=== PATIENT | female | born 1980 | race Caucasian/White ===

== ENCOUNTER 2017-01-03 21:51 | Emergency (ER) | payer OTHER ==
[~2017-01-03 21:51] MED LIST: COL100 PO; DOXYCYCLINE100 M4 PO; ESG PO; PYRIDIUM200 MG PO
[2017-01-03 23:55] VITALS: BP 120/92
== END 2017-01-03 23:55 | disposition home or self-care (01) ==
LOC: ED 21:51
DX: R07.89 Other chest pain (principal); G89.29 Other chronic pain; R11.10 Vomiting, unspecified; R20.2 Paresthesia of skin; F11.20 Opioid dependence, uncomplicated; M79.7 Fibromyalgia; N30.10 Interstitial cystitis (chronic) without hematuria; R53.82 Chronic fatigue, unspecified; Z79.899 Other long term (current) drug therapy; Z88.1 Allergy status to other antibiotic agents; Z88.2 Allergy status to sulfonamides
CPT/HCPCS: J1885; J2270; Q0092; Q0162

== ENCOUNTER 2017-01-23 15:42 | Emergency (ER) | payer OTHER ==
[2017-01-23 18:08] VITALS: BP 120/79
== END 2017-01-23 18:08 | disposition home or self-care (01) ==
LOC: ED 15:42
DX: G89.29 Other chronic pain (principal); M54.5 Low back pain; R07.89 Other chest pain; M79.7 Fibromyalgia; R53.82 Chronic fatigue, unspecified
CPT/HCPCS: J1885; J2270; Q0162

== ENCOUNTER 2017-02-12 16:10 | Emergency (ER) | payer OTHER ==
[~2017-02-12] VITALS: Ht 154.9 cm; Wt 46.3 kg
[2017-02-12 17:42] LABS: UA SPECIFIC GRAVITY <=1.005 (1.005-1.035); microscopic required? YES; urine erythrocyte 3+ (NEGATIVE)
[2017-02-12 18:12] VITALS: BP 124/76
== END 2017-02-12 18:12 | disposition home or self-care (01) ==
LOC: ED 16:10
PROVIDERS: Emergency Medicine
DX: N39.0 Urinary tract infection, site not specified (principal); Z88.0 Allergy status to penicillin; Z79.899 Other long term (current) drug therapy; Z88.1 Allergy status to other antibiotic agents; Z79.1 Long term (current) use of non-steroidal anti-inflammatories (NSAID); Z79.891 Long term (current) use of opiate analgesic; Z88.8 Allergy status to other drugs, medicaments and biological substances
CPT/HCPCS: J0696

== ENCOUNTER 2018-06-13 13:14 | Emergency (ER) | payer OTHER ==
[~2018-06-13] VITALS: Ht 162.6 cm; Wt 52.2 kg
[2018-06-13 13:23] VITALS: Ht 162.6 cm; Wt 52.2 kg
[2018-06-13 17:19] LABS: FREE T4 0.81 ng/dL (0.76-1.46); FREE THYROXINE INDEX 2.1 ug/dL (1.4-4.5); T4(THYROXINE) 6.1 ug/dL (4.7-13.3)
[2018-06-13 17:25] LABS: T3 TOTAL 1.16 ng/mL
[2018-06-13 17:31] LABS: CALCIUM 7.5 mg/dL (8.5-10.1); CARBON DIOXIDE 26.6 mmol/L (21-32); CHLORIDE SERUM 104 mmol/L (98-107); CREATININE SERUM 0.7 mg/dL (0.6-1.0); GFR1 > 60 mL/min; GLUCOSE SERUM 91 mg/dL (74-106); POTASSIUM SERUM 3.9 mmol/L (3.5-5.1); SODIUM SERUM 136 mmol/L (136-145)
[2018-06-13 17:44] LABS: ALKALINE PHOSPHATASE 33 U/L (46-116); ALT/SGPT 15 U/L (14-59); AST/SGOT 19 U/L (15-37); BILIRUBIN TOTAL 0.1 mg/dL (0.20-1.00)
[2018-06-13 17:45] LABS: ALBUMIN 3.2 g/dL (3.4-5.0); TOTAL PROTEIN, SERUM 5.9 g/dL (6.4-8.2)
[2018-06-13 18:33] VITALS: BP 114/75
== END 2018-06-13 18:33 | disposition home or self-care (01) ==
LOC: ED 13:14
PROVIDERS: Specialist
DX: G43.801 Other migraine, not intractable, with status migrainosus (principal); Z88.1 Allergy status to other antibiotic agents; Z88.0 Allergy status to penicillin; Z88.5 Allergy status to narcotic agent; Z88.8 Allergy status to other drugs, medicaments and biological substances
CPT/HCPCS: 84439; J0780; J1885; J2270; J7030